=== PATIENT | male | born 1990 | race Two or more races ===

== ENCOUNTER 2018-03-25 02:49 | Emergency (ER) | payer OTHER ==
[~2018-03-25] VITALS: Ht 182.9 cm; Wt 75.7 kg
[2018-03-25] MEDS ORDERED: PERCOCET 5-3251 EACH (02:57)
[2018-03-25] MEDS ORDERED: KETO10TA2 PO (04:28)
[2018-03-25] MEDS ORDERED: ORPHENADRINE C100 MG PO (04:28)
== END 2018-03-25 04:57 | disposition home or self-care (01) ==
LOC: ER 02:49
DX: M54.5 Low back pain (principal)